=== PATIENT | female | born 1995 | race Caucasian/White ===

== ENCOUNTER 2017-04-28 08:33 | Emergency (ER) | payer OTHER ==
[2017-04-28 10:42] LABS: URINE BLOOD (Dip) POC Trace-intact (NEGATIVE); URINE GLUCOSE (Dip) POC Negative (NEGATIVE); URINE KETONES (Dip) POC Negative (NEGATIVE); URINE LEUKOCYTE EST (Dip) POC Negative (NEGATIVE); URINE NITRITE (Dip) POC Negative (NEGATIVE); URINE TOTAL PROTEIN POC Negative (NEGATIVE)
== END 2017-04-28 11:55 | disposition home or self-care (01) ==
LOC: FTE 08:33
DX: B86 Scabies (principal)
CPT/HCPCS: 81003; 99283